=== PATIENT | female | born 1960 ===

== ENCOUNTER 2019-03-27 12:00 | Outpatient (CLI) | payer MEDICARE, BC | END 2019-03-27 23:59 | disposition home or self-care (01) | LOC: WOU 12:00 | PROVIDERS: ATTEND Surgery | DX: Z48.3 Aftercare following surgery for neoplasm (principal); C50.912 Malignant neoplasm of unspecified site of left female breast; Z90.12 Acquired absence of left breast and nipple | CPT/HCPCS: A6402; G0463 ==